=== PATIENT | male | born 1955 | race Caucasian/White ===

== ENCOUNTER 2024-10-08 15:51 | Outpatient (CLI) | payer MEDICARE, MEDICAID | END 2024-10-08 23:59 | disposition home or self-care (01) | LOC: RAD 15:51 | PROVIDERS: ATTEND Otolaryngology | DX: R13.12 Dysphagia, oropharyngeal phase (principal); R13.10 Dysphagia, unspecified; Z92.3 Personal history of irradiation; R13.14 Dysphagia, pharyngoesophageal phase | CPT/HCPCS: 74230 ==